=== PATIENT | female | born 1970 | race Caucasian/White ===

== ENCOUNTER 2021-03-24 14:29 | Emergency (ER) | payer OTHER ==
[~2021-03-24] VITALS: Ht 162.6 cm; Wt 80.7 kg
[~2021-03-24 14:29] MED LIST: PREDNISONE 10 M10 M1 PO; PROVENTIL HFA6.7 G1 INH; TESSALON200 MG PO; ZPAK PO
[2021-03-24] MEDS ORDERED: MOBIC15 MG PO (15:56)
[2021-03-24] MEDS ORDERED: CLINDAMYCIN HC300 MG PO (15:56)
[2021-03-24 16:00] VITALS: BP 172/98
== END 2021-03-24 16:00 | disposition home or self-care (01) ==
LOC: ER 14:29
DX: K04.7 Periapical abscess without sinus (principal); E11.9 Type 2 diabetes mellitus without complications; F32.9 Major depressive disorder, single episode, unspecified; E78.00 Pure hypercholesterolemia, unspecified; F17.200 Nicotine dependence, unspecified, uncomplicated; Z86.718 Personal history of other venous thrombosis and embolism; Z79.51 Long term (current) use of inhaled steroids; Z79.899 Other long term (current) drug therapy

== ENCOUNTER 2021-05-12 12:12 | Emergency (ER) | payer BC ==
[~2021-05-12] VITALS: Ht 162.6 cm; Wt 79.4 kg
[~2021-05-12 12:12] MED LIST changes: +CLINDAMYCIN HC300 MG PO; +MOBIC15 MG PO
[2021-05-12 12:44] VITALS: BP 115/81
== END 2021-05-12 13:35 | disposition home or self-care (01) ==
LOC: ER 12:12
DX: T78.40XA Allergy, unspecified, initial encounter (principal); E11.9 Type 2 diabetes mellitus without complications; F32.9 Major depressive disorder, single episode, unspecified; E78.00 Pure hypercholesterolemia, unspecified